=== PATIENT | male | born 1995 | race Caucasian/White ===

== ENCOUNTER 2019-03-04 06:36 | Emergency (ER) | payer MEDICAID ==
[~2019-03-04] VITALS: Ht 180.3 cm; Wt 72.6 kg
[2019-03-04 07:00] VITALS: BP_SYST 147
[2019-03-04] MEDS ORDERED: PROCHLORPERAZINE EDISYLATE 10 MG/2 ML VIAL IM ONE (07:15)
[2019-03-04] MEDS ORDERED: DIPHENHYDRAMINE INJ 50 MG/ML VIAL IM ONE (07:15)
[2019-03-04 08:48] VITALS: BP_SYST 138
== END 2019-03-04 08:49 | disposition home or self-care (01) ==
LOC: SED 06:36
DX: G43.909 Migraine, unspecified, not intractable, without status migrainosus (principal)
CPT/HCPCS: 96372; 99283; J0780; J1200

== ENCOUNTER 2021-12-30 10:18 | Inpatient (IN) | payer MEDICAID ==
[~2021-12-30] VITALS: Ht 180.3 cm; Wt 79.8 kg
[2021-12-30 10:20] VITALS: BP_SYST 143
--- NOTE | 2021-12-30 10:20 | NUR ---
Patient triaged and placed in waiting room. VSS and patient appears in no acute distress at this time. Accompanied by SELF, awaiting available bed, and MD notified of need for MSE.
--- NOTE | 2021-12-30 11:01 | NUR ---
CALLED FOR BED PLACEMENT AND UNABLE TO LOCATE PT IN WAITING ROOM.
--- NOTE | 2021-12-30 11:26 | NUR ---
CALLED ON GIVEN NUMBER AND PT WAS WAITING IN CAR TO COME UNTIL CALLED TO COME INTO ER. PT WILL BE GOING TO ROOM #6
--- NOTE | 2021-12-30 11:40 | NUR ---
EDMUNDO Wilhelm at bedside examining patient.
--- NOTE | 2021-12-30 11:41 | NUR ---
BIB self from home. Pt presents to the ED c/o urinary retention and hematuria. Pt denies burning sensation. Pain level 9/10 when urinating. aaox4 skin intact and warm. No PMH
--- NOTE | 2021-12-30 11:43 | NUR ---
# 20 gauge angiocath placed to right forearm. Use of asceptic technique. Opsite placed over site. Blood return noted. Blood for lab drawn from site. Flushed with 10 cc of normal saline. No evidence of infiltration noted. Patient tolerated well.
--- NOTE | 2021-12-30 11:45 | NUR ---
Urine collected and sent to lab.
--- NOTE | 2021-12-30 12:40 | NUR ---
pt with technical proposal writer via wheel chair.
[2021-12-30 12:55] LABS: BILIRUBIN,URINE 2+ (NEGATIVE); BLOOD, URINE 3+ (NEGATIVE); CLARITY/URINE CLOUDY (CLEAR); COLOR,URINE RED (YELLOW); GLUCOSE,URINE TRACE (NEGATIVE); KETONES,URINE TRACE (NEGATIVE); LEUKOCYTE ESTERASE ,URINE 2+ (NEGATIVE); NITRITE, URINE POSITIVE (NEGATIVE); PROTEIN URINE 3+ (NEGATIVE)
--- NOTE | 2021-12-30 12:57 | NUR ---
Returned from radiology, back to [facility].
[2021-12-30 13:19] LABS: BACTERIA,URINE MODERATE /HPF (None Seen); RBC,URINE >100 /HPF (0-3)
[2021-12-30 13:29] LABS: BASOPHILS # (AUTO) 0.1 K/uL (0.0-0.2); BASOPHILS % (AUTO) 0.4 % (0.0-2.0); EOSINOPHILS # (AUTO) 0.1 K/uL (0.0-0.4); EOSINOPHILS % (AUTO) 0.7 % (0.0-4.0); HEMATOCRIT 41.5 % (36-54); HEMOGLOBIN 14.8 g/dL (14.0-18.0); LYMPHOCYTES # (AUTO) 1.4 K/uL (1.0-5.5); LYMPHOCYTES % (AUTO) 7.1 % (20.5-51.5); MEAN CORPUSCULAR HEMOGLOBIN 31 pg (27-31); MEAN CORPUSCULAR HGB CONC 36 % (32-36); MEAN CORPUSCULAR VOLUME 86 fL (79.0-98.0); MONOCYTES % (AUTO) 9.8 % (1.7-9.3); NEUTROPHILS # (AUTO) 16.5 K/uL (1.8-7.7); PLATELET COUNT (AUTO) 312 K/uL (130-430); RED BLOOD CELL COUNT(AUTO) 4.81 MIL/uL (4.2-6.2); RED CELL DISTRIBUTION WIDTH 12.5 % (9.0-15.0); WHITE BLOOD COUNT (AUTO) 20.2 K/uL (4.8-10.8)
[2021-12-30 13:41] LABS: CALCIUM 8.4 mg/dL (8.4-11.0); CREATININE 0.95 mg/dL (0.55-1.30); POTASSIUM 3.8 mmol/L (3.5-5.1)
[2021-12-30] MEDS ORDERED: cefTRIAXone 1 GM in D5W 50 ML IV ONE (13:45)
[2021-12-30] MEDS ORDERED: NACL 0.9% 2,500 ML IV ONE (13:45)
[2021-12-30] MEDS ORDERED: NACL 0.9% 1,000 ML IV ONE (13:45)
[2021-12-30 13:47] LABS: ALBUMIN 3.2 g/dL (3.4-4.8); TOTAL BILIRUBIN 0.6 mg/dL (0.0-1.0)
[2021-12-30] MEDS ORDERED: KETOROLAC TROMETHAMINE 30 MG VIAL IVP ONE (14:45)
[2021-12-30] MEDS ORDERED: ACETAMINOPHEN 500 MG TABLET PO ONE (14:45)
[2021-12-30] MEDS ORDERED: cefTRIAXone 1 GM VIAL ONE (15:01)
[2021-12-30] MEDS ORDERED: ONDANSETRON HCL 4 MG/2 ML VIAL IVP ONE (16:30)
[2021-12-30] MEDS ORDERED: MORPHINE 4 MG INJ. 4 MG/ML VIAL IVP ONE (16:30)
--- NOTE | 2021-12-30 16:40 | NUR ---
Notified ED Admitting regarding Dr. Rudolph's request for admission/transfer. Per Dr. Rudolph, pt is stable for transfer. Will notify insurance business analyst regarding this matter. PER FACESHEET: [facility]
--- NOTE | 2021-12-30 17:00 | NUR ---
covid swab done and sent to lab.
--- NOTE | 2021-12-30 18:46 | NUR ---
PAGING FOR ADMISSION PER FACESHEET: [facility] ATTEMPTED TO REACH SERVICE DESK MANAGER REGARDING THIS MATTER AND IT HAS BEEN TWO HOURS. WILL CALL TRANSFUSION NURSE FOR ADMISSION DUE TO DELAY OF CARE. DR. NEVES IS TRANSFUSION NURSE [phone]
--- NOTE | 2021-12-30 19:04 | NUR ---
Laura from called for clinicals. Authorization #[id number] for admission. Fax # [phone]
--- NOTE | 2021-12-30 19:27 | NUR ---
Received report from WOODROW Montalvo Pt resting comfortably in bed AOX4 VSS Able to make needs known NAD at this time Will continue to monitor
--- NOTE | 2021-12-30 19:40 | NUR ---
Admit bed requested Patient will be admitted to care of . Admitted to [facility] unit. Diagnosis UTI Inpatient (Yes or No) YES Observation (Yes or No) NO Orientation concerns or request close to nursing station (Yes or No) NO Covid Status NEGATIVE On vent or bipap NO Isolation requirements NO Needs a sitter NO From Home (Yes or if No enter name of facility) YES Requires Dialysis (Yes or No) NO Med Rec Completed (Yes of No) PENDING
--- NOTE | 2021-12-30 20:15 | NUR ---
Gave report to WOODROW Elliott
--- NOTE | 2021-12-30 20:20 | NUR ---
ADMIT NOTE Received pt from ER to the floor with a diagnosis of UTI. Admission process initiated. patient oriented to pain management, safety and call light-teach back done.
[2021-12-30] MEDS ORDERED: ONDANSETRON HCL 4 MG/2 ML VIAL IVP PRN (21:30)
[2021-12-30] MEDS ORDERED: HYDROcodone/ACETAMIN 5-325 MG TAB (NORCO/ VICODIN) PO PRN (21:30)
[2021-12-30] MEDS ORDERED: LORazepam 2 MG/ML VIAL IVP PRN (21:30)
[2021-12-30] MEDS ORDERED: HYDROcodone/ACETAMIN 10-325 MG TAB PO PRN (21:30)
[2021-12-30] MEDS ORDERED: ACETAMINOPHEN 325 MG TABLET PO PRN (21:30)
[2021-12-30] MEDS ORDERED: NALOXONE HCL 0.4 MG/ML AMP (NARCAN) IVP PRN ×2 (21:30)
--- NOTE | 2021-12-30 21:50 | NUR ---
Initial RN notes Pt AAOx4, VSS, afebrile. No c/o pain or discomfort at this time. IV saline lock R. AC 20 good blood return. Oriented to call light use. Bed low, locked, siderails up x2. To monitor.
[2021-12-30 21:52] VITALS: BP_SYST 124
[2021-12-30] MEDS: NORMAL SALINE 5 ML DISP.SYRIN IVF SCH (22:00)
[2021-12-30] MEDS ORDERED: NORMAL SALINE 5 ML DISP.SYRIN IVF SCH (22:00)
[2021-12-30] MEDS ORDERED: cefTRIAXone 1 GM IVPB PREMIX 50 ML IV ONE (22:20)
[2021-12-30] MEDS: cefTRIAXone 1 GM IVPB PREMIX 50 ML IV SCH (22:34)
[2021-12-31 01:00] VITALS: BP_SYST 124
[2021-12-31] MEDS: NORMAL SALINE 5 ML DISP.SYRIN IVF SCH ×3 (06:20→22:00)
--- NOTE | 2021-12-31 06:21 | NUR ---
Closing notes Pt asleep, easily awakens, no s/s distress. Pt afebrile. Per pt he voided 3x blood urine. Encouraged pt to drink more fluids. Call light within reach. Safety maintained. To endorse to AM nurse.
[2021-12-31 06:41] LABS: BASOPHILS % (AUTO) 0.3 % (0.0-2.0); EOSINOPHILS # (AUTO) 0.3 K/uL (0.0-0.4); EOSINOPHILS % (AUTO) 1.7 % (0.0-4.0); HEMATOCRIT 39.4 % (36-54); HEMOGLOBIN 13.7 g/dL (14.0-18.0); LYMPHOCYTES # (AUTO) 1.4 K/uL (1.0-5.5); LYMPHOCYTES % (AUTO) 9.3 % (20.5-51.5); MEAN CORPUSCULAR HEMOGLOBIN 30 pg (27-31); MEAN CORPUSCULAR HGB CONC 35 % (32-36); MEAN CORPUSCULAR VOLUME 87 fL (79.0-98.0); MONOCYTES # (AUTO) 1.5 K/uL (0.0-1.0); MONOCYTES % (AUTO) 10.6 % (1.7-9.3); NEUTROPHILS # (AUTO) 11.4 K/uL (1.8-7.7); NEUTROPHILS % (AUTO) 78.1 % (40.0-70.0); PLATELET COUNT (AUTO) 282 K/uL (130-430); RED BLOOD CELL COUNT(AUTO) 4.53 MIL/uL (4.2-6.2); RED CELL DISTRIBUTION WIDTH 12.9 % (9.0-15.0); WHITE BLOOD COUNT (AUTO) 14.6 K/uL (4.8-10.8)
[2021-12-31 06:58] LABS: CALCIUM 8.3 mg/dL (8.4-11.0); CREATININE 0.73 mg/dL (0.55-1.30); POTASSIUM 3.9 mmol/L (3.5-5.1)
[2021-12-31 07:36] LABS: C-REACTIVE PROTEIN QUANT 15.2 mg/dL (0-0.5)
[2021-12-31 07:50] VITALS: BP_SYST 116
--- NOTE | 2021-12-31 07:50 | NUR ---
Opening Note Patient is laying in bed with eyes closed. A/O x4. No apparent distress noted. Vitals as charted. Safety and fall precautions in place. Call light within reach. All needs met.
[2021-12-31 11:32] LABS: ERYTHROCYTE SEDIMENTATION RATE 60 MM/HR (0-15)
[2021-12-31 12:00] VITALS: BP_SYST 138
--- NOTE | 2021-12-31 12:42 | NUR ---
CONSULTATION PAGED/CALLED Reason for Consultation: [] HEMATURIA Person Who was Notified: [] MIRA/ARMINDA Consulting Physician: [] DR JOSE HOWE Occupational Therapy Assistant Specialty: [] UROLOGY Ordering Physician: [] DR NEVES I WAS ADVISED BY ARMINDA TO PAGE DR HOWE DIRECTLY FOR HE IS IN SURGERY.
--- NOTE | 2021-12-31 12:50 | NUR ---
UROLOGIST DR HOWE CALLED BACK AND HE WILL SEE PT LATER TODAY.
[2021-12-31 16:22] VITALS: BP_SYST 121
--- NOTE | 2021-12-31 17:30 | NUR ---
Note Dr. Cloud at bedside. Spoke with patient. He will input new orders for STD testing.
--- NOTE | 2021-12-31 18:48 | NUR ---
Closing Note Patient is laying in bed awake watching television. No apparent distress noted. Patient stable. Call light within reach. Safety and fall precautions in place. All needs met. Will endorse care to night custodian RN.
[2021-12-31 20:00] VITALS: BP_SYST 124
[2021-12-31] MEDS: cefTRIAXone 1 GM IVPB PREMIX 50 ML IV SCH (21:59)
--- NOTE | 2021-12-31 22:30 | NUR ---
Patient in bed asleep. No acute distress noted. Remains on IV antibiotics no adverse reactions noted. Will continue to monitor.
[2022-01-01] VITALS: BP_SYST 120
[2022-01-01] MEDS: NORMAL SALINE 5 ML DISP.SYRIN IVF SCH (05:26)
--- NOTE | 2022-01-01 07:35 | NUR ---
MORNING ROUNDS: PATIENT ON HIS LEFT SIDE,LYING IN THE BED. IV FLUIDS RUNNING AT RIGHT FOREARM ,INTACT. CALL LIGHT WITH IN REACH. BED LOCKED AT LOWEST POSITION. NO ACUTE DISTRESS.
[2022-01-01 08:07] VITALS: BP_SYST 117
--- NOTE | 2022-01-01 10:55 | NUR ---
AMA: Patient does not wish to proceed with medical care recommended by Dr Cline. Patient given information related to possible complications, up to and including , which could occur as a result of leaving hospital at this time. Patient verbalizes understanding of risks involved leaving against medical advice. Patient has signed AMA form.
--- NOTE | 2022-01-01 11:00 | NUR ---
AWARE OF AMA: DR Frantz NEVES AWARE PATIENT LEFT AGAINST MEDICAL ADVICE.
[2022-01-02 08:06] LABS: HSV 1 IgG, TYPE SPECIFIC <0.91 index (0.00-0.90)
[2022-01-04 09:51] LABS: HSV 2 IgG, TYPE SPECIFIC 9.66 index (0.00-0.90)
== END 2022-01-01 10:55 | disposition left against medical advice (07) | DRG 463 ==
LOC: SED 10:18 → SMU 19:35
PROVIDERS: ADMIT Preventive Medicine Preventive Medicine/Occupational Environmental Medicine; ATTEND Preventive Medicine Preventive Medicine/Occupational Environmental Medicine
DX: N10 Acute pyelonephritis (principal); E44.1 Mild protein-calorie malnutrition; E88.09 Other disorders of plasma-protein metabolism, not elsewhere classified; R31.0 Gross hematuria; Z20.822 Contact with and (suspected) exposure to COVID-19; Z28.310 Unvaccinated for COVID-19
CPT/HCPCS: 36415; 76376; 76770; 80048; 80053; 81000; 83605; 85025; 85651-TC; 86140; 86592; 86695; 86696; 87040; 87086; 87491; 96361; 96365; 96375; 99285; J0696; J1885; J2270; J2405